=== PATIENT | female | born 1955 | race Caucasian/White ===

== ENCOUNTER 2021-04-10 10:39 | Emergency (ER) | payer OTHER ==
[~2021-04-10] VITALS: Ht 149.9 cm; Wt 77.1 kg
[2021-04-10] MEDS ORDERED: PERCOCET 5-3251 EACH PO (13:19)
== END 2021-04-10 16:25 | disposition home or self-care (01) ==
LOC: ER 10:39
DX: S52.091A Other fracture of upper end of right ulna, initial encounter for closed fracture (principal); S00.83XA Contusion of other part of head, initial encounter; W18.39XA Other fall on same level, initial encounter; Y93.89 Activity, other specified; Y92.488 Other paved roadways as the place of occurrence of the external cause; Y99.8 Other external cause status